=== PATIENT | female | born 1990 | race Hispanic/Latino ===

== ENCOUNTER 2017-12-06 14:50 | Outpatient (CLI) | payer OTHER ==
--- NOTE | 2017-12-06 17:11 | MRI ---
MRI PELVIS: Date: 12/06/17 PROVIDED CLINICAL HISTORY: Bilateral hip pain. FINDINGS: There are small bilateral hip joint effusions. There are nonspecific tiny patchy foci of subcortical marrow signal alteration involving the superior aspects of each femoral head posteriorly. This signal abnormality is not typical for changes of osteonecrosis. The acetabular guillermina and femoral-acetabular articular cartilage are suboptimally evaluated without joint distention, but appear grossly normal. Regional marrow and muscular signal appear otherwise normal. The bilateral hip flexor, abductor, adductor, and hamstring tendons demonstrate an intact MR appearan ce. The visualized portions of each sacroiliac joint appear unremarkable. The symphysis pubis appears nor mal. The visualized intrapelvic contents are suboptimally evaluated utilizing this protocol but appear dora ssly normal. The courses of the regional major neurovascular structures appear unremarkable. IMPRESSION: Small bilateral hip joint effusions with minimal patchy nonspecific marrow signal alteration within t he posterior-superior aspects of each femoral head. No definite evidence for osteonecrosis. POS: OFF
== END 2017-12-06 14:51 | disposition home or self-care (01) ==
LOC: SCSMRI 14:50
PROVIDERS: ATTEND Internal Medicine Rheumatology
DX: M87.059 Idiopathic aseptic necrosis of unspecified femur (principal); M25.452 Effusion, left hip; M25.451 Effusion, right hip
CPT/HCPCS: 72195